=== PATIENT | female | born 1995 | race Caucasian/White ===

== ENCOUNTER 2018-02-05 20:01 | Emergency (ER) | payer SELFPAY ==
[~2018-02-05] VITALS: Ht 157.5 cm; Wt 53.1 kg
[2018-02-05 20:08] VITALS: BP 116/75
[2018-02-05] MEDS ORDERED: LIDOCAINE 1%-EPI 1:100,000 20 ML VIAL TP ONE (20:30)
[2018-02-05] MEDS ORDERED: TDAP [DIPH/PERTUSSIS/TET] 0.5 ML VIAL IM ONE ×2 (20:30→20:43)
[2018-02-05] MEDS ORDERED: LIDOCAINE 1%-EPI 1:100,000 20 ML VIAL ONE (20:31)
== END 2018-02-05 21:13 | disposition home or self-care (01) ==
LOC: ER 20:07
DX: L02.414 Cutaneous abscess of left upper limb (principal)
CPT/HCPCS: 99283; A4606; A6402; A6407; J3490; Z7610; 90715